=== PATIENT | male | born 1975 | race Hispanic/Latino ===

== ENCOUNTER 2024-10-18 16:11 | Outpatient (CLI) | payer OTHER | END 2024-10-18 16:12 | disposition home or self-care (01) | LOC: RAD 16:11 | PROVIDERS: ATTEND Family Medicine | DX: R76.12 Nonspecific reaction to cell mediated immunity measurement of gamma interferon antigen response without active tuberculosis (principal); R91.1 Solitary pulmonary nodule | CPT/HCPCS: 71046 ==